=== PATIENT | female | born 1940 | race Caucasian/White ===

== ENCOUNTER 2018-04-07 09:35 | Day surgery (SDC) | payer OTHER, SELFPAY ==
--- NOTE | 2018-04-07 | PATH_ITS ---
[facility] Accession Number: [id number] . 01 Material submitted: . CECAL POLYP . 02 Diagnosis: Cecal Polyp: Tubular adenoma. MRV/04/11/2018 . 02 Electronically signed: . Jose Ramon Simon MD, PhD, Pathologist NPI- [id number] . 01 Gross description: . CECAL POLYP: Received in formalin are multiple fragment(s) of florentino, soft tissue measuring 1.2 x 0.5 x 0.4 cm in aggregate submitted entirely in 1 cassette(s) /CKI /CKI . 02 Pathologist provided ICD-10: D12.0 . 02 CPT . 736000 Specimen Comment: A duplicate report has been generated due to demographic updates. Performed at: 01 [facility] [address] [place] [address], [place], [place] [id number] MD Wicho Marshall MD Phone: [phone] Performed at: 02 [facility] [address] [place], [place] [id number] MD Zhang Gonzalez MD Phone: [phone]
[2018-04-07 09:58] VITALS: BP 144/71; PULSE 61; RESP 16; TEMP 36.2; O2SAT 100; BMI 30.1
[2018-04-07] MEDS: SODIUM CHLORIDE 0.9% 1,000 ML 200 ML IV (10:54)
--- NOTE | 2018-04-07 10:55 | PM.HP.1 ---
History of Present Illness Date Patient Seen: 04/07/18 Time Patient Seen: 10:55 Chief complaint: [id number] Narrative: Very pleasant 77-year-old lady who is known to me from past visits. I last saw her in 2011 for colonoscopy. At that time she had 1 hyperplastic polyp and no premalignant polyps. She presents for screening colonoscopy. She denies any new problems or symptoms related to the function of her GI tract. She reports she needs colonoscopy as part of health maintenance program. Patient History Family & Social History Family History: Reviewed 04/07/18 by Meena Platt MD Social History: household members spouse Meds Home Medications Medication Instructions Recorded Confirmed Type hydrochlorothiazide 25 mg PO DAILY 04/07/18 04/07/18 History pravastatin 40 mg PO DAILY 04/07/18 04/07/18 History Allergies Allergy/AdvReac Type Severity Reaction Status Date / Time No Known Drug Allergies Allergy Verified 04/07/18 09:56 Review of Systems Review of Systems All systems reviewed & are unremarkable except as noted in HPI and below Exam Vital Signs (past 8 hours): - 04/07/18 09:58 Temperature 97.2 F L Pulse Rate 61 Respiratory Rate 16 Blood Pressure 144/71 H Pulse Oximetry 100 Oxygen Delivery Method Room Air Narrative Exam Narrative: Very pleasant well-nourished well-developed lady in no distress. HEENT: Is normocephalic and atraumatic, pupils equal and reactive to light accommodation with anicteric sclera Lungs: Clear bilaterally Heart: Regular rate rhythm Abdomen: Soft nontender active bowel sounds Extremities: Warm well perfused Assessment & Plan Plan: Assessment/Plan Narrative: Cayla 77-year-old lady here for screening colonoscopy. We discussed the risks risks and benefits of the procedure and she has expressed desire to complete it today
[2018-04-07] MEDS: MIDAZOLAM 5 MG/5 ML VIAL IV (11:22)
[2018-04-07] MEDS: fentaNYL 250 MCG/5 ML INJ IV (11:22)
--- NOTE | 2018-04-07 11:28 | PM.OP.1 ---
Operative Date/Time/Diagnoses Date of procedure: 04/07/18 Time of procedure: 11:28 Post-op diagnosis: same Procedure & Clinicians Procedure: Colonoscopy to the cecum with polypectomy x1 Same procedure as scheduled: Yes Indications: Last colonoscopy 2011 Surgeon: Meena Platt Click Yes if Unassisted: Yes Anesthesia Type: Sedation (Versed 5 mg; fentanyl 200 mcg) Operative Notes Findings: 1. Excellent prep 2. 5 mm polyp in the cecum removed with cold forceps and submitted for pathology 3. Mildly tortuous colon 4. Sigmoid diverticulosis without evidence of diverticulitis 5. Grade 1 internal hemorrhoid Closure Type: not applicable Specimen(s): other (Polyp from the cecum) Estimated Blood Loss (mL): 1 Procedure in detail: After obtaining informed consent, the patient was brought to the GI suite and placed in the left lateral decubitus position on the examination table. After placement of appropriate monitors, the patient was given incremental doses of Versed and Fentanyl until an appropriate level of sedation was achieved. A time out was held per [facility] protocol. A digital rectal examination was performed and did not reveal any masses or obstructing lesions. The colonoscope was gently passed into the patient's anus and the entire colon navigated to the level of the cecum with minimal difficulty. Once in the cecum, the scope was withdrawn being sure to go before and beyond all mucosal folds and prominences and get an excellent examination. The findings are noted above. At the level of the rectal vault, the scope was retroflexed and the internal anal canal was examined. The scope was straightened and air aspirated from the colon. The instrument was removed from the patient's body and the procedure was concluded. The patient was allowed to awaken from sedation without difficulty and taken to the post-anesthesia care unit in good condition. Total sedation time 26 min Total withdrawal time 12 min 14 sec Complications: none Condition: stable Disposition: PACU Plan for aftercare: 1. Discharge to home 2. Plan for next colonoscopy in 5 years or as clinically indicated
[2018-04-07 11:32] VITALS: BP 123/85; PULSE 62; RESP 16; TEMP 35.8; O2SAT 94
[2018-04-07 11:36] VITALS: BP 114/63; PULSE 60; RESP 10; O2SAT 93
[2018-04-07 11:41] VITALS: BP 111/65; PULSE 60; RESP 15; O2SAT 94
[2018-04-07 11:46] VITALS: BP 111/63; PULSE 60; RESP 16; O2SAT 93
[2018-04-07 11:54] VITALS: BP 116/65; PULSE 59; RESP 16; TEMP 36.6; O2SAT 100
== END 2018-04-07 12:32 | disposition home or self-care (01) ==
PROVIDERS: Visit Provider Surgery
PROC: 0DJD8ZZ Inspection of Lower Intestinal Tract, Via Natural or Artificial Opening Endoscopic (ICD-10-PCS; CPT 45378; principal; 2018-04-07 10:45)
DX: Z86.010 Personal history of colon polyps (principal); K57.30 Diverticulosis of large intestine without perforation or abscess without bleeding; K64.0 First degree hemorrhoids; D12.0 Benign neoplasm of cecum
CPT/HCPCS: 45380; 99152; 99153; J2250; J3010